=== PATIENT | female | born 1975 | race Two or more races ===

== ENCOUNTER 2022-02-24 15:07 | Emergency (ER) | payer OTHER ==
[~2022-02-24] VITALS: Ht 167.6 cm; Wt 90.7 kg
[2022-02-24] MEDS ORDERED: ZYRTEC10 M3 (15:39)
[2022-02-24] MEDS ORDERED: FOSAMAX70 MG (15:39)
== END 2022-02-24 20:06 | disposition home or self-care (01) ==
LOC: ER 15:07
DX: U07.1 COVID-19 (principal)